=== PATIENT | male | born 2000 | race Caucasian/White ===

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

== ENCOUNTER 2024-05-18 12:20 | Emergency (ER) | payer BC, SELFPAY ==
[2024-05-18 12:46] VITALS: BP 133/70; PULSE 76; RESP 19; TEMP 36.8; O2SAT 100; BMI 47.0
--- NOTE | 2024-05-18 12:52 | PC.NURSE ---
Dr. Asher at bedside
--- NOTE | 2024-05-18 14:12 | ED_ITS ---
<Statement entered by Shae Asher DO - 05/18/24 15:25> I was consulted by the KELSEA, and we discussed the complexity of the problems being addressed. I approved the treatment and management plan for this patient's care in the emergency department, thus performing a substantive portion of the medical decision making. Shae Asher DO Discharge Plan Disposition Patient Disposition: Home, Self-Care Condition: Good Prescriptions Prescriptions: New triamcinolone acetonide 0.1 % cream 1 applic topical BID Qty: 30 0RF No Action azithromycin 250 mg tablet See Rx Instructions PO .COMPLEX Qty: 6 0RF Rx Instructions: take 500 mg today (day 1), then 250 mg for 4 days (days 2-5) ranitidine HCl 150 MG tablet 150 mg PO BID topiramate 100 MG tablet 125 mg PO BID Patient Comments: Pt takes 100 mg in the day Pt takes 125 mg at night hydrochlorothiazide 12.5 mg capsule 12.5 mg PO BID Referrals Follow up/Referrals: Cheryl Vail MD [Referring] - See instructions Sebas Sheriff MD [Primary Care Provider] - See instructions Activity Restrictions/Add. Instructions Additional Instructions/Restrictions: Today your evaluated in the emergency department for a rash. Please follow-up with dermatology. Return to the ED for worsening of condition Clinical Impressions Clinical Impression: Rash Instructions Patient Instructions: DI for Skin Abscess Print Language Print Language: Chadian Discharge ED Provider: Shae Asher General Adult HPI General Chief complaint: Skin/Abscess/Foreign Body Stated complaint: discoloration on left leg Time Seen by Provider: 05/18/24 12:41 Mode of Arrival: Ambulatory Source of Information: Patient Limitations: No Limitations Description of Symptoms (Recalled from ER Triage Doc. by RN): pt presents to ED with c/o discoloration to left outer leg. pt reports discoloration has been there for 1 month. pt reports over the past two weeks it has gotten worse. no pain, little bit of itching. History of Present Illness HPI narrative: Patient is a 23-year-old male who presents to the ED for rash on lateral left leg x 1 week. Patient denies any previous rash, denies pruritus, denies warmth, pain. Patient states he has not had a rash like this before. He denies being around any heat sources. Related Data Home Medications ?Medication ?Instructions ?Recorded ?Confirmed ranitidine HCl 150 mg tablet 150 mg PO BID GERD 07/17/17 02/21/20 topiramate 100 mg tablet 125 mg PO BID MIGRAINES 07/17/17 02/21/20 hydrochlorothiazide 12.5 mg capsule 12.5 mg PO BID HTN 02/21/20 02/21/20 Previous Rx's ?Medication ?Instructions ?Recorded azithromycin 250 mg tablet See Rx Instructions PO .COMPLEX #6 02/21/20 tabs triamcinolone acetonide 0.1 % 1 applic topical BID #30 grams 05/18/24 topical cream Allergies Allergy/AdvReac Type Severity Reaction Status Date / Time No Known Allergies Allergy Verified 02/21/20 10:22 [facility] Disclaimer: The information contained in this section may have been updated after the patient was seen, as this information can be updated by other users. Social History Smoking Status: Current every day smoker tobacco type: e-cigarettes second hand exposure: No alcohol intake: never counseling provided: none substance use type: denies use current occupational status: student Travel in the last 8 weeks: None household members: family housing: house current occupational exposures/hazards: No caffeine: Yes Have you lived/traveled outside [place] in past 30 days?: No Contact w/someone who lives/traveled outside US past 30 days?: No Exposure to someone with infectious disease in past 14 days?: No Do you have a fever (greater than 100.4 F or 38 C)?: No Have you tested positive for COVID-19: No Exposed to someone with COVID-19 in past 14 days?: No Do you have a sore throat?: No Do you have a cough?: No Do you have any weakness?: No Do you have any diarrhea?: No Are you experiencing any unusual bleeding?: No Do you have any muscle aches/pain?: No Do you have any abdominal pain?: No Are you experiencing loss of taste or smell?: No Other Medical History Have you received the Flu Vaccine for this season: No Have you received the Pneumonia Vaccine: No ROS Obtained: Yes Systems reviewed as appropriate & no additional complaints except as documented Physical Exam General General appearance: alert and in no apparent distress Head Head exam: atraumatic and normocephalic Eye Eye exam: Present normal appearance and PERRL ENT ENT exam: Present normal exam Neck Neck exam: Present normal inspection Chest Chest inspection: Present normal inspection and symmetric chest wall rise; Absent tenderness Respiratory Respiratory exam: Present normal lung sounds bilaterally Cardiovascular Cardiovascular exam: Present regular rate Abdominal Exam Abdominal exam: Present soft and normal bowel sounds; Absent tenderness Extremities Exam Extremities exam: Present normal inspection and full ROM Back Exam Back exam: Present normal inspection and full ROM Neurological Exam Neurological exam: Present alert and oriented X3 Psychiatric Psychiatric exam: Present normal affect and normal mood Skin Skin exam: Present warm, dry and other (Reticular rash noted on left lower extremity) Medical Decision Making Medical Records Screening: Per USPSTF and CDC recommendations, given the prevalence of disease in our region, it is our hospital?s policy to screen for HIV and viral Hepatitis for all patients aged 18 and over and those with ongoing risk factors. James Inquiry Pt receiving controlled substance: No James was queried for this patient: No Vital Signs: 05/18/24 12:46 Temperature 98.3 F Temperature Source Oral Pulse Rate [Left Radial] 76 Respiratory Rate 19 Blood Pressure [Right Arm] 133/70 Blood Pressure Mean [Right Arm] 91 02 Sat by Pulse Oximetry 100 Oxygen Delivery Method Room Air Orders (Tests/Meds): ORDERS Category Date Time Status HIV Combo Stat Lab 05/18/24 12:49 Ordered Hepatitis C Ab Qual. W/ RFX Stat Lab 05/18/24 12:49 Ordered Medical Decision Narrative: In summary, patient is a 23-year-old male who presents to the ED for rash on lateral left leg x 1 week. Patient denies any previous rash, denies pruritus, denies warmth, pain. Patient states he has not had a rash like this before. He denies being around any heat sources. Upon initial exam, patient is alert, oriented and cooperative. Patient is hemodynamically stable. Physical exam remarkable for left lateral extremity reticular rash. Nonblanching. Denies fever, chills, body aches, headache, visual disturbance, recent insect bites, chest pain, shortness of breath, abdominal pain, nausea, vomiting, dysuria, painful extremities, claudication, among others. Differential diagnosis includes heat rash, fungal course, infectious process, among others Discussed with patient that this rash is a reticular rash, we will attempt to treat with triamcinolone however patient will most likely have to follow-up with dermatology. He was agreeable to this plan. I feel we can defer any imaging or testing at this time as it will not contribute to today's workup. Patient is appropriate to be discharged home at this time. We discussed medication. Discussed follow-up with dermatology. We discussed return precautions to the ED. Patient verbalized understandable. Critical Care Critical Care Time Critical Care Time: No
[2024-05-18 14:17] VITALS: BP 127/74; PULSE 81; RESP 16; TEMP 36.6; O2SAT 99
== END 2024-05-18 14:18 | disposition home or self-care (01) ==
PROVIDERS: Emergency Provider Emergency Medicine; PCP Family Medicine
DX: R21 Rash and other nonspecific skin eruption (principal)
CPT/HCPCS: 99283